=== PATIENT | female | born 1995 | race Caucasian/White ===

== ENCOUNTER → 2017-09-11 | Outpatient (CLI) | payer OTHER ==
[~2017-09-11] MED LIST: ACHD5005 PO; FERR-57 PO; IBP600T1 PO; PEDI18TA2 PO; PREN-93 PO
--- NOTE | 2017-09-11 17:23 | Diagnostic Imaging Report ---
PROCEDURE: US PELVIC (NON OB) TECHNIQUE: Multiple real-time grayscale images were obtained over the pelvis in various projections transabdominally. INDICATION: Dyspareunia. FINDINGS: The uterus measures 6.3 x 3.6 x 2.8 cm. Endometrial stripe is 6 mm. There are no myometrial masses. The right ovary measures 2.7 x 2.2 x 1.5 cm. The left ovary measures 3.2 x 2.0 x 1.8 cm. There is normal blood flow to both ovaries. There are no adnexal masses. No free fluid. IMPRESSION: Normal pelvic ultrasound. Dictated by: Dictated on workstation # [id number]
== END ==
LOC: RAD 15:41
PROVIDERS: ATTEND Obstetrics & Gynecology
DX: N94.10 Unspecified dyspareunia (principal)
CPT/HCPCS: 76856

== ENCOUNTER 2022-05-28 21:53 | Outpatient (CLI) | payer SELFPAY ==
[~2022-05-28] VITALS: Ht 152.4 cm; Wt 63.5 kg
[2022-05-28 22:29] LABS: BILIRUBIN,URINE NEGATIVE (NEGATIVE); CLARITY,URINE CLEAR; COLOR,URINE YELLOW; GLUCOSE, URINE (UA) TRACE (NEGATIVE); KETONES,URINE NEGATIVE (NEGATIVE); LEUKOCYTE ESTERASE ,URINE 1+ (NEGATIVE); NITRITE,URINE NEGATIVE (NEGATIVE); PH,URINE 6.5 (5-9); PROTEIN,URINE NEGATIVE (NEGATIVE)
[2022-05-28 22:34] VITALS: BP 117/71
[2022-05-28 22:38] LABS: BACTERIA,URINE FEW /HPF; YEAST,URINE FEW /HPF
[2022-05-28 23:40] VITALS: BP 105/60
== END 2022-05-28 23:40 ==
LOC: LDRP 21:53 → WSo 21:53
PROVIDERS: ATTEND Family Medicine
DX: Z34.93 Encounter for supervision of normal pregnancy, unspecified, third trimester (principal); Z3A.33 33 weeks gestation of pregnancy
CPT/HCPCS: 81000; 87088

== ENCOUNTER 2022-05-30 11:25 | Outpatient (CLI) | payer SELFPAY ==
[~2022-05-30] VITALS: Ht 151 cm; Wt 62.6 kg
[2022-05-30] VITALS (7 sets, daily range): BP systolic 99–112; BP diastolic 55–69
[2022-05-30 13:00] LABS: BILIRUBIN,URINE NEGATIVE (NEGATIVE); CLARITY,URINE CLEAR; COLOR,URINE YELLOW; GLUCOSE, URINE (UA) NEGATIVE (NEGATIVE); KETONES,URINE NEGATIVE (NEGATIVE); LEUKOCYTE ESTERASE ,URINE NEGATIVE (NEGATIVE); NITRITE,URINE NEGATIVE (NEGATIVE); PH,URINE 6.5 (5-9); PROTEIN,URINE NEGATIVE (NEGATIVE)
[2022-05-30 13:18] LABS: BACTERIA,URINE NEGATIVE /HPF; CALCIUM OXALATE CRYSTALS,UR MODERATE /LPF; RBC,URINE RARE /HPF; SQUAMOUS EPITHELIAL CELL,UR RARE /HPF; WBC,URINE RARE /HPF
[2022-05-30] MEDS ORDERED: BETAMETHASONE ACE/NA PHOS 6 MG/ML (CELESTONE SOLUSPAN) ONE (13:45)
[2022-05-30] MEDS ORDERED: BETAMETHASONE ACE/NA PHOS 6 MG/ML (CELESTONE SOLUSPAN) IM SCH (14:00)
[2022-05-30] MEDS ORDERED: LACTATED RINGERS 1,000 ML IV SCH (15:00)
[2022-05-30] MEDS ORDERED: NIFEdipine 10 MG CAPS (WOMEN'S SERVICES ONLY!!!) PO ONE (15:00)
[2022-05-30] MEDS ORDERED: CATHETER FLUSH 10 ML SYR IVP PRN (15:15)
--- NOTE | 2022-05-30 19:21 | Short Stay Summary ---
History of Present Illness History of Present Illness Reason for visit/HPI at 32w6d was seen in clinic for routine Ob follow up visit, and reported clear fluid on underwear at times, and contractions. In clinic, sterile speculum exam was done and there was no pooling, nitrazine testing was negative and no ferning was seen on slide of discharge. It did appear consistent with yeast infection. Sterile vaginal exam revealed soft, posterior cerivx dilated to 1+ /50%. Of note, per chart review, she was in Labor and Delivery over the weekend with a few rare contractions over an hour or so of stay and was dilated to 2/50%. At clinic, a ultrasound was obtained which showed cervical length 2.7 cm (had been 3.3 cm on 05/26) and she was noted to have regular contractions on NST, so she was sent to [facility] for betamethasone and further monitoring. She recently transferred Ob care from [place] where she was being monitored with serial US cervical lengths until shortly before moving back to [place], and per record review, her last US was reassuring and monitoring was discontinued. Date of Admission 05/30/22 Date of Discharge 05/30/22 Time Seen by Provider: 10:00 Attending Physician Joan Mckenzie MD Admitting Physician Admitting Physician: Attending Physician: Joan Mckenzie MD Consult Allergies and Home Medications Allergies Coded Allergies: No Known Drug Allergies (Unverified , 08/11/14) Patient Home Medication List Home Medication List Reviewed: Yes No Active Prescriptions or Reported Meds Past [id number] Hx Patient Social History Smoking Status: Never a Smoker 2nd Hand Smoke Exposure: No Immunizations Up To Date Tetanus Booster (TDap): Unknown Pediatric: Yes Date of Influenza Vaccine: Apr 27, 2022 Surgeries Yes (D and C) Respiratory No Cardiovascular No Neurological No Reproductive System Expected Date of Delivery: Jul 19, 2022 Hx : 3 Hx Para: 1 Hx Total # of Abortions (Spona: 1 Hx Reproductive Disorders: No Sexually Transmitted Disease: No HIV/AIDS: No Blood Transfusions Adverse Reaction to a Blood Tr: No Family Medical History Family Hx: Patient reports no known family medical history. Review of Systems Constitutional: no symptoms reported Physical Exam Vital Signs Vital Signs - First Documented Capillary Refill : Less Than 3 Seconds Height, Weight, BMI Height: 4'10.25" Weight: 101lbs. 0.4oz. [id number]; 27.45 BMI Method: General Appearance: No Apparent Distress Cardiovascular: No Edema Genital/Rectal: Other (thick white vaginal discharge) Neurologic/Psychiatric: Alert, Normal Mood/Affect Skin: Normal Color, Warm/Dry Short Stay Diagnosis Discharge Diagnosis-Short Stay Admission Diagnosis: contractions Third trimester 32 weeks gestation History of delivery Suspected vaginal yeast infection Final Discharge Diagnosis: Same as admit plus labor Conclusion Labs Laboratory Tests 05/30/22 12:03: Urine Color YELLOW, Urine Clarity CLEAR, Urine pH 6.5, Urine Specific [place] 1.015L, Urine Protein NEGATIVE, Urine Glucose (UA) NEGATIVE, Urine Ketones NEGATIVE, Urine Nitrite NEGATIVE, Urine Bilirubin NEGATIVE, Urine Urobilinogen 1.0, Urine Leukocyte Esterase NEGATIVE, Urine RBC (Auto) NEGATIVE, Urine RBC RARE, Urine WBC RARE, Urine Squamous Epithelial Cells RARE, Urine Crystals PRESENTH, Urine Calcium Oxalate Crystals MODERATEH, Urine Bacteria NEGATIVE, Urine Casts NONE, Urine Mucus SMALLH, Urine Culture Indicated NO Conclusion/Plan Pt observed and noted to have regular contractions and cervical change (from 2 to 3 cm) consistent with labor. She had a dose of betamethasone and nifedipine and was transferred to [place] due to NICU availability. JOAN MCKENZIE MD May 30, 2022 19:21
[2022-05-31] MEDS ORDERED: BETAMETHASONE ACE/NA PHOS 6 MG/ML (CELESTONE SOLUSPAN) IM SCH (09:00)
== END 2022-05-30 16:05 | disposition short-term general hospital (02) ==
LOC: LDRP 11:25 → WSo 11:25
PROVIDERS: ATTEND Family Medicine
DX: O47.03 False labor before 37 completed weeks of gestation, third trimester (principal); Z3A.32 32 weeks gestation of pregnancy
CPT/HCPCS: 81000; 87088; 96360; 96372; G0463; 99214

== ENCOUNTER 2022-06-06 10:48 | Inpatient (IN) | payer SELFPAY ==
[~2022-06-06] VITALS: Ht 150 cm; Wt 62.2 kg
[2022-06-06] VITALS (17 sets, daily range): BP systolic 99–126; BP diastolic 52–73
[2022-06-06] MEDS ORDERED: LACTATED RINGERS 1,000 ML IV ONE (11:30)
[2022-06-06] MEDS ORDERED: D5 LR IV SOLUTION 1,000 ML IV SCH (11:45)
[2022-06-06] MEDS ORDERED: MINERAL OIL 30 ML UDC TOP PRN (11:45)
[2022-06-06 11:50] LABS: BILIRUBIN,URINE NEGATIVE (NEGATIVE); CLARITY,URINE SL CLOUDY; COLOR,URINE DARK YELLOW; GLUCOSE, URINE (UA) NEGATIVE (NEGATIVE); KETONES,URINE NEGATIVE (NEGATIVE); LEUKOCYTE ESTERASE ,URINE 2+ (NEGATIVE); NITRITE,URINE NEGATIVE (NEGATIVE); PROTEIN,URINE NEGATIVE (NEGATIVE)
[2022-06-06 11:53] LABS: BASOPHILS % (AUTO) 0 % (0-10); EOSINOPHILS # (AUTO) 0.1 10^3/uL (0.0-0.3); EOSINOPHILS % (AUTO) 0 % (0-10); HEMATOCRIT 38 % (35-52); LYMPHOCYTES # (AUTO) 2.1 10^3/uL (1.0-4.0); LYMPHOCYTES % (AUTO) 13 % (12-44); MEAN CORPUSCULAR HEMOGLOBIN 29 pg (25-34); MEAN CORPUSCULAR HGB CONC 34 g/dL (32-36); MEAN CORPUSCULAR VOLUME 87 fL (80-99); MEAN PLATELET VOLUME 10.4 fL (9.0-12.2); MONOCYTES % (AUTO) 12 % (0-12); NEUTROPHILS # (AUTO) 12.3 10^3/uL (1.8-7.8); NEUTROPHILS % (AUTO) 74 % (42-75); PLATELET COUNT 262 10^3/uL (130-400); WHITE BLOOD COUNT 16.7 10^3/uL (4.3-11.0)
[2022-06-06] MEDS ORDERED: AMPICILLIN FOR IV USE 2,000 MG in NS (IVPB) 50 ML IV SCH (12:06)
[2022-06-06] MEDS ORDERED: AMPICILLIN 2,000 MG/14.8 ML (IV USE) ONE (12:09)
[2022-06-06 12:13] LABS: BACTERIA,URINE TRACE /HPF; RBC,URINE 0-2 /HPF; SQUAMOUS EPITHELIAL CELL,UR 0-2 /HPF
[2022-06-06 12:46] LABS: BAND NEUTROPHILS 5 %; LYMPHOCYTES % (MANUAL) 7 %; MONOCYTES % (MANUAL) 5 %; NEUTROPHILS % (MANUAL) 73 %; REACTIVE LYMPHOCYTES 10 %
[2022-06-06] MEDS ORDERED: GENTAMICIN IV SCH ×2 (13:00→15:00)
[2022-06-06] MEDS ORDERED: NS IV SCH ×2 (13:00→15:00)
[2022-06-06] MEDS ORDERED: fentaNYL INJ 100 MCG/2 ML AMP ONE (13:14)
[2022-06-06] MEDS ORDERED: fentaNYL INJ 100 MCG/2 ML AMP IVP PRN (13:15)
[2022-06-06] MEDS ORDERED: PREN-37 PO (13:19)
[2022-06-06] MEDS ORDERED: OXYTOCIN PRE-MIX DRIP 500 ML IV ONE (13:34)
--- NOTE | 2022-06-06 13:51 | History & Physical-OB ---
OB - Chief Complaint & HPI Date/Time Date of Admission: Date of Admission: Jun 06, 2022 at 11:41 Date seen by a Provider: Jun 06, 2022 Time Seen by a Provider: 12:20 Chief Complaint/History OB-Reason for Admission/Chief: Labor Hx : 3 Hx Para: 0111 Expected Date of Delivery: Jul 19, 2022 Gestational Age in Weeks: 33 Gestational Age in Days: 6 History of Labs O+, antibody neg. RI. HIV/HepB/RPR NR. 1 hour glucola nml. Varicella non-immune. CF, SMA and hemoglobinopathy carrier testing negative. TB quantiferon negative. Cell free DNA low risk, female. Other at 33w6d presents with contractions since around midnight. She was here last week with contractions and cervical change to 4 cm, and received betamethasone and was transferred to [place] where her contractions stopped, and she believes she was 4 cm/80%. She reports having contractions yesterday and going to [place], reports she was 4 cm/90% but her contractions spaced out and she was discharged. Last night they became more strong and this morning continued to get closer up until current at every 5 minutes. She has had some bleeding after her check, denies leaking fluid. She did deliver her first baby at 36w3d and had PTL at 33 weeks in that . Allergies and Home Medications Allergies Coded Allergies: No Known Drug Allergies (Unverified , 08/11/14) Patient Home Medication List Home Medication List Reviewed: Yes Vit/Iron Fumarate/FA ( Tablet) 27 Mg Iron-800 Mcg Tablet, 1 EACH PO DAILY, (Reported) Entered as Reported by: EVANS BURNS on 06/06/22 1319 Last Action: New Order OB - History Hx of Present Care: Yes Ultrasounds: Normal mid trimester US Other Concerns: labor Information Induced Hypertension: No Maternal Gestational Diabetes: No Hemorrhage: No Obstetrical History Hx : 3 Hx Para: 1 Hx # Term Pregnancies: 0 Hx # Pregnancies: 1 Number of Living Children: 1 Hx Termination: No Hx Total # of Abortions (Spona: 1 Hx Multiple Gestation: No Hx Ectopic : No Hx Stillbirth: No Hx Complication: Yes Hx Induced Hypertens: No Hx Maternal Gestational Diabet: Yes (suspected in first with 1 hour glucola 180 and 3 hour not complet) Hx Hemorrhage: No (did require transfusion with miscarriage) Delivery History Hx Dystocia: No Hx Forceps Assisted Delivery: No Hx Vacuum Extraction Assisted: No Hx Placenta Abnormality: No Hx Distress: No Hx Large For Gestational Age I: No Hx Small for Gestational Age I: No Hx Section: No Hx Vaginal Delivery Post C-Sec: No Hx Blood Disorders: No Adverse Rxn to Tranfusion: No Patient Past Medical History PMH: Miscarriage Nephrolithiasis SurgHx: D and C Social History/Family History Alcohol Use: Denies Use Recreational Drug Use: No Smoking Cessation: Never smoker 2nd Hand Smoke Exposure: No Immunizations Influenza Vaccine Up-to-Date: No; Not Current Hepatitis A: No Hepatitis B: No Tetanus Booster (TDap): Unknown Rubella: immune RPR/VDRL: Negative GBS Status: Unknown HBsAG: Negative OB - Admission Exam Physical Exam Vitals: Vital Signs 06/06/22 06/06/22 11:18 12:30 Temp 36.8 Pulse 99 Resp 18 B/P (MAP) 112/72 Pulse Ox 98 O2 Delivery Room Air HEENT: NCAT Abdomen: Gravid Extremities: Normal Cervical Dilatation: 6cm Effacement: Other (90) Station: -3 Membranes: Intact Accelerations: Accelerations Present Decelerations: No Decelerations Short Term Variability: Present Booth Operator Variability: Average (6-25) Contractions on Admission: < 5 Minutes Apart Labs Laboratory Tests Test 06/06/22 11:00 06/06/22 11:35 Range/Units Urine Color DARK YELLOW Urine Clarity SL CLOUDY Urine pH 7.0 5-9 Urine Specific [place] 1.010 L 1.016-1.022 Urine Protein NEGATIVE NEGATIVE Urine Glucose (UA) NEGATIVE NEGATIVE Urine Ketones NEGATIVE NEGATIVE Urine Nitrite NEGATIVE NEGATIVE Urine Bilirubin NEGATIVE NEGATIVE Urine Urobilinogen 1.0 < = 1.0 MG/DL Urine Leukocyte Esterase 2+ H NEGATIVE Urine RBC (Auto) 1+ H NEGATIVE Urine RBC 0-2 /HPF Urine WBC 10-25 H /HPF Urine Squamous Epithelial Cells 0-2 /HPF Urine Crystals NONE /LPF Urine Bacteria TRACE /HPF Urine Casts NONE /LPF Urine Mucus NEGATIVE /LPF Urine Culture Indicated YES White Blood Count 16.7 H 4.3-11.0 10^3/uL Red Blood Count 4.42 3.80-5.11 10^6/uL Hemoglobin 13.0 11.5-16.0 g/dL Hematocrit 38 35-52 % Mean Corpuscular Volume 87 80-99 fL Mean Corpuscular Hemoglobin 29 25-34 pg Mean Corpuscular Hemoglobin Concent 34 32-36 g/dL Red Cell Distribution Width 13.4 10.0-14.5 % Platelet Count 262 130-400 10^3/uL Mean Platelet Volume 10.4 9.0-12.2 fL Immature Granulocyte % (Auto) 1 % Neutrophils (%) (Auto) 74 42-75 % Lymphocytes (%) (Auto) 13 12-44 % Monocytes (%) (Auto) 12 0-12 % Eosinophils (%) (Auto) 0 0-10 % Basophils (%) (Auto) 0 0-10 % Neutrophils # (Auto) 12.3 H 1.8-7.8 10^3/uL Lymphocytes # (Auto) 2.1 1.0-4.0 10^3/uL Monocytes # (Auto) 2.0 H 0.0-1.0 10^3/uL Eosinophils # (Auto) 0.1 0.0-0.3 10^3/uL Basophils # (Auto) 0.0 0.0-0.1 10^3/uL Immature Granulocyte # (Auto) 0.2 H 0.0-0.1 10^3/uL Neutrophils % (Manual) 73 % Lymphocytes % (Manual) 7 % Monocytes % (Manual) 5 % Band Neutrophils 5 % Reactive Lymphocytes 10 % OB - Assessment/Plan/Diagnosis Assessment Admission Dx labor at 33w6d GBS unknown Admission Status: Inpatient Order (span 2 midnights) Reason for Inpatient Admission: Labor, delivery and postparutm course Plan Problems: (1) labor Assessment & Plan: 33w6d with accurate dating. Since arrival changed in less than an hour from 5-6+ cm, does not appear safe to transfer due to active labor. She has received betamethasone one week ago. Start ampicillin for GBS unknown. Expectant management. Discussed with patient the risks of delivery during transport vs delivery here with expected transfer of to NICU after delivery and she is agreeable with plan. Discussed with Social Welfare Clerk fur ironer as well. Qualifiers: JOAN KUNZ MD Jun 06, 2022 13:51
[2022-06-06] MEDS ORDERED: CATHETER FLUSH 10 ML SYR IV SCH ×2 (14:00→22:00)
[2022-06-06] MEDS ORDERED: GENTAMICIN 40 MG/ML 2 ML INJ SDV IV SCH (14:45)
[2022-06-06] MEDS ORDERED: LIDOCAINE 1% INJ 10 ML VIAL ONE (14:53)
[2022-06-06] MEDS: AMPICILLIN FOR IV USE 1,000 MG in NS (IVPB) 50 ML IV SCH ×2 (16:04→21:37)
[2022-06-06] MEDS: OXYTOCIN PRE-MIX DRIP 500 ML IV SCH ×2 (16:20→17:50)
--- NOTE | 2022-06-06 17:03 | OB Labor & Delivery Record ---
Vag Delivery Note Vag Delivery Note Date of Delivery: 06/06/22 Preoperative Diagnosis: Brittany Hunter is a (27 /Para 3 / 1, Gestational Age (wks)33with 6 days Postoperative Diagnosis: Same Surgeon: JOAN KUNZ Anesthesia: None Delivery Type: Findings: Viable female infant, apgars 6/9, weight 4#11 Lacerations: none Intact placenta with 3 vessel cord. No nuchal cord, body cord or shoulder dystocia Estimated Blood Loss: 100 ml Complications: None Condition: Stable Description of Procedure: The patient is a 27 year old female who presented in active labor with chorioamnionitis. She was admitted and informed consent was obtained. Her labor course was remarkable for labor, fever and tachycardia. She progressed to complete dilatation and began to push. She was then set up for delivery. The infant's head was delivered atraumatically in the LILI position. The shoulders and remainder of the infant's body were then delivered without difficulty. Upon delivery, the infant was vigorous and placed on maternal chest and the mouth and nares were bulb suctioned. After a brief delay cord was doubly clamped and cut and the infant was handed off to the nursery staff. An intact placenta that appeared bi-lobed with 3-vessel cord delivered via Jeanine and there was found to be minimal bleeding.~ Vigorous fundal massage was performed and the fundus was found to be firm. IV oxytocin was given. Examination of the vagina and perineum revealed no lacerations. Following the delivery, sponge, instrument and needle counts were correct. Mom and baby were both in stable condition in the labor suite. Vitals - Labs Vital Signs - I&O Vital Signs Date Time Temp Pulse Resp B/P (MAP) Pulse Ox O2 Delivery O2 Flow Rate FiO2 06/06/22 14:00 37.9 105 20 112/73 (86) 06/06/22 13:30 104 20 113/73 (86) 06/06/22 12:30 99 18 98 06/06/22 11:30 105 18 98 06/06/22 11:18 36.8 114 18 112/72 98 Room Air 06/06/22 11:00 36.8 114 18 99 Room Air Labs Laboratory Tests 06/06/22 11:00: Urine Color DARK YELLOW, Urine Clarity SL CLOUDY, Urine pH 7.0, Urine Specific [place] 1.010L, Urine Protein NEGATIVE, Urine Glucose (UA) NEGATIVE, Urine Ketones NEGATIVE, Urine Nitrite NEGATIVE, Urine Bilirubin NEGATIVE, Urine Urobilinogen 1.0, Urine Leukocyte Esterase 2+H, Urine RBC (Auto) 1+H, Urine RBC 0-2, Urine WBC 10-25H, Urine Squamous Epithelial Cells 0-2, Urine Crystals NONE, Urine Bacteria TRACE, Urine Casts NONE, Urine Mucus NEGATIVE, Urine Culture Indicated YES 06/06/22 11:35: White Blood Count 16.7H, Red Blood Count 4.42, Hemoglobin 13.0, Hematocrit 38, Mean Corpuscular Volume 87, Mean Corpuscular Hemoglobin 29, Mean Corpuscular Hemoglobin Concent 34, Red Cell Distribution Width 13.4, Platelet Count 262, Mean Platelet Volume 10.4, Immature Granulocyte % (Auto) 1, Neutrophils (%) (Auto) 74, Lymphocytes (%) (Auto) 13, Monocytes (%) (Auto) 12, Eosinophils (%) (Auto) 0, Basophils (%) (Auto) 0, Neutrophils # (Auto) 12.3H, Lymphocytes # (Auto) 2.1, Monocytes # (Auto) 2.0H, Eosinophils # (Auto) 0.1, Basophils # (Auto) 0.0, Immature Granulocyte # (Auto) 0.2H, Neutrophils % (Manual) 73, Lymphocytes % (Manual) 7, Monocytes % (Manual) 5, Band Neutrophils 5, Reactive Lymphocytes 10 JOAN KUNZ MD Jun 06, 2022 17:03
[2022-06-06] MEDS ORDERED: OXYTOCIN PRE-MIX DRIP 500 ML IV SCH ×2 (17:10→17:15)
[2022-06-06] MEDS ORDERED: BENZOCAINE/MENTHOL (DERMOPLAST) 56 ML CAN TP PRN (17:15)
[2022-06-06] MEDS ORDERED: WITCH HAZEL(TUCKS) 40 EA JAR TOP PRN (17:15)
[2022-06-06] MEDS: IBUPROFEN 600 MG (MOTRIN) TAB PO SCH (17:28)
[2022-06-06] MEDS: DOCUSATE SODIUM 100 MG (COLACE) CAP PO SCH (21:36)
[2022-06-07 00:41] VITALS: BP 99/63
[2022-06-07] MEDS: IBUPROFEN 600 MG (MOTRIN) TAB PO SCH ×3 (00:41→13:41)
[2022-06-07] MEDS: AMPICILLIN FOR IV USE 1,000 MG in NS (IVPB) 50 ML IV SCH ×2 (00:41→04:59)
[2022-06-07] MEDS ORDERED: ACETAMINOPHEN 500 MG TAB (TYLENOL) PO PRN (04:45)
[2022-06-07 04:51] VITALS: BP 100/68
[2022-06-07 05:29] LABS: BASOPHILS # (AUTO) 0.1 10^3/uL (0.0-0.1); BASOPHILS % (AUTO) 0 % (0-10); EOSINOPHILS # (AUTO) 0.2 10^3/uL (0.0-0.3); EOSINOPHILS % (AUTO) 1 % (0-10); HEMATOCRIT 35 % (35-52); HEMOGLOBIN 11.8 g/dL (11.5-16.0); LYMPHOCYTES # (AUTO) 2.6 10^3/uL (1.0-4.0); LYMPHOCYTES % (AUTO) 18 % (12-44); MEAN CORPUSCULAR HEMOGLOBIN 30 pg (25-34); MEAN CORPUSCULAR HGB CONC 34 g/dL (32-36); MEAN CORPUSCULAR VOLUME 88 fL (80-99); MONOCYTES # (AUTO) 1.8 10^3/uL (0.0-1.0); MONOCYTES % (AUTO) 12 % (0-12); NEUTROPHILS # (AUTO) 10.2 10^3/uL (1.8-7.8); NEUTROPHILS % (AUTO) 68 % (42-75); PLATELET COUNT 244 10^3/uL (130-400)
[2022-06-07] MEDS ORDERED: IBUP-844 PO (06:44)
[2022-06-07 09:00] VITALS: BP 100/60
[2022-06-07] MEDS: DOCUSATE SODIUM 100 MG (COLACE) CAP PO SCH (09:02)
[2022-06-07 13:15] VITALS: BP 99/65
--- NOTE | 2022-06-07 16:04 | Discharge Summary ---
Discharge Summary Hospital Course Hospital Course Date of Admission: Jun 06, 2022 at 11:41 Admission Diagnosis : labor at 33w6d Family Physician/Provider: Joan Mckenzie MD Date of Discharge: 06/07/22 Discharge Diagnosis: Spontaneous vaginal delivery Chorioamnionitis resolved Hospital Course: G3 now P2 admitted in active labor at 33w6d, shortly after admission became febrile, treated with amp and gent for chorioamnionitis, delivered via vaginal delivery viable female . No lacerations. remained afebrile and had improved leukocytosis, asymptomatic. Labs and Pending Lab Test: Laboratory Tests 06/07/22 05:20: White Blood Count 15.0H, Red Blood Count 4.00, Hemoglobin 11.8, Hematocrit 35, Mean Corpuscular Volume 88, Mean Corpuscular Hemoglobin 30, Mean Corpuscular Hemoglobin Concent 34, Red Cell Distribution Width 13.2, Platelet Count 244, Mean Platelet Volume 10.0, Immature Granulocyte % (Auto) 1, Neutrophils (%) (Auto) 68, Lymphocytes (%) (Auto) 18, Monocytes (%) (Auto) 12, Eosinophils (%) (Auto) 1, Basophils (%) (Auto) 0, Neutrophils # (Auto) 10.2H, Lymphocytes # (Auto) 2.6, Monocytes # (Auto) 1.8H, Eosinophils # (Auto) 0.2, Basophils # (Auto) 0.1, Immature Granulocyte # (Auto) 0.2H Microbiology 06/06/22 Urine Culture - Final, Complete Gram Pos Mixed Bacterial Mai Home Meds Active Ibu (Ibuprofen) 600 Mg Tablet 600 Mg PO Q6HR PRN Reported Tablet ( Vit/Iron Fumarate/FA) 27 Mg Iron-800 Mcg Tablet 1 Each PO DAILY Assessment/Pt DC Instructions Follow up with Dr. Mckenzie in 6 weeks. Discharge Diet: No Restrictions Activity as Tolerated: Yes (avoid strenuous activity for 6 weeks) Discharge Physical Examination Allergies: Coded Allergies: No Known Drug Allergies (Unverified , 08/11/14) General Appearance: No Apparent Distress, WD/WN Respiratory: Lungs Clear, Normal Breath Sounds Cardiovascular: Regular Rate, Rhythm, No Murmur Gastrointestinal: Non Tender (fundus nontender) Extremity: No Pedal Edema Skin: Normal Color, Warm/Dry Neurologic/Psychiatric: Alert, Normal Mood/Affect JOAN MCKENZIE MD Jun 07, 2022 16:04
[2022-06-07 17:00] VITALS: BP 100/59
[2022-06-07 18:10] VITALS: BP 100/59
== END 2022-06-07 18:10 | disposition home or self-care (01) | DRG 805 ==
LOC: WSo 10:48 → LDRP 10:48 → WSo 11:40 → LDRP 11:41
PROVIDERS: ADMIT Family Medicine; ATTEND Family Medicine
PROC: 10E0XZZ Delivery of Products of Conception, External Approach (ICD-10-PCS; principal; 2022-06-06)
DX: O60.14X0 Preterm labor third trimester with preterm delivery third trimester, not applicable or unspecified (principal); O41.1230 Chorioamnionitis, third trimester, not applicable or unspecified; Z37.0 Single live birth; Z3A.33 33 weeks gestation of pregnancy; D72.829 Elevated white blood cell count, unspecified; O76 Abnormality in fetal heart rate and rhythm complicating labor and delivery
CPT/HCPCS: 36415; 81000; 85007; 85025; 85027; 86780; 86850; 86900; 86901; 87088